=== PATIENT | male | born 1960 | race Caucasian/White ===

== ENCOUNTER 2025-04-30 12:10 | Emergency (ER) | payer OTHER, SELFPAY ==
[2025-04-30 12:20] VITALS: BP 175/106
[2025-04-30 12:50] LABS: Hematocrit 43.3 % (39.0-52.0); Hemoglobin 14.9 g/dL (13.0-18.0); Mean Corp Hgb Conc. 34.4 g/dL (33.0-37.0); Mean Corpuscular Volume 84.9 fL (80.0-94.0); Nucleated Red Blood Cells % 0 % (-); Platelet Count 218 10^3/uL (130-400); Red Cell Dist. Width 12.9 % (11.5-14.5)
[2025-04-30 13:03] LABS: ALT (SGPT) 43 U/L (0-50); AST (SGOT) 39 U/L (17-59); Albumin 5.5 g/dl (3.5-5.0); Alkaline Phosphatase 50 U/L (38-126); Blood Urea Nitrogen 15 mg/dl (9-20); Calcium 9.9 mg/dl (8.4-10.2); Carbon Dioxide 26 mmol/L (22-30); Chloride 104 mmol/L (98-107); Glucose 102 mg/dl (70-99); Potassium 4.8 mmol/L (3.5-5.1); Sodium 140 mmol/L (135-145); Total Protein 8.9 g/dl (6.3-8.2); eGFR > 60.00
[2025-04-30 13:15] LABS: Troponin I < 0.012 ng/ml
[2025-04-30 13:48] VITALS: BP 145/71
[2025-04-30 14:00] VITALS: BP 137/69
--- NOTE | 2025-04-30 14:19 | ED.GENMED ---
Addendum entered and electronically signed by Tee Peñaloza DO 04/30/25 17:57:
Additional history had patient chew #4 81 mg aspirin
Original Note:
History of Present Illness
General
Chief Complaint: Dizziness
Source: patient and spouse
Exam Limitations: none
Time Seen by Provider: 04/30/25 13:50
Nursing documentation reviewed up to this point in time: agreed with
History of Present Illness
History of Present Illness:
64-year-old male history of hyperlipidemia was seen at his desk around 1030 developed slight dizziness feeling blurry vision left greater than right did not get better when he stood up did not get better when he closes eyes, no vomiting, no chest
pain or shortness of breath did feel palpitation no slurred speech no arm or leg weakness lasted about 25 or 30 minutes he called his to pick him up said he looked okay but he was anxious drove him here where his symptoms have resolved
did give him aspirin
If applicable-neuro sx onset
Onset of symptoms known: Yes
Date of onset of symptoms: 04/30/25
Time of onset of symptoms: 10:30
Past History
Past History
ED Past Medical History: Hypercholesterolemia
ED Past Surgical History: None
Social History
Tobacco: Non-smoker
Alcohol: Occasional
Drug: None
Personal:
Living: with family
Employment: Employed
Phy Exam
Physical Exam
Physical Exam:
Physical Exam
General: no apparent distress, not acutely ill
Neck: No jaundice
Heart: s1/s2 regular rate and rhythm, no murmur. equal radial pulses.
Lungs: no acute respiratory distress. clear bilaterally
Abdomen nontender
Neuro: alert and oriented. no focal neurological deficits normal finger-nose bilateral
Skin: no rash
Psychiatric: well kept. interactive and cooperative
Extremities: no edema.
Course
Orders/Labs/Results
Orders:
Orders
04/30/25 12:24
Electrocardiogram (*1) Urgent
Reason for Study: Hypertension, Benign
EKG- Treatment ONCE
04/30/25 12:34
CMP [Comprehensive Metabolic Panel] Urgent
Complete Blood Count/With Diff Urgent
Troponin I Urgent
04/30/25 14:06
CT Head & Neck Angio W/wo IV Urgent
Comment:
Reason For Exam: dizzy, visual changes
Abnormal Lab Results
04/30/25
12:34
MPV 10.8 H fL
(7.4-10.4)
Absolute Monos (auto) 0.7 H 10^3/uL
(0.1-0.6)
Lymphocytes % 18.8 L %
(20.5-51.1)
Glucose 102 H mg/dl
(70-99)
Total Protein 8.9 H g/dl
(6.3-8.2)
Albumin 5.5 H g/dl
(3.5-5.0)
04/30/25 12:34
04/30/25 12:34
Vital Signs
Initial and Last Documented VS:
Initial Vital Signs
Temp Pulse Resp BP Pulse Ox
98.2 F 65 16 175/106 100
04/30/25 12:20 04/30/25 12:20 04/30/25 12:20 04/30/25 12:20 04/30/25 12:20
Last Documented Vital Signs
Temp Pulse Resp BP Pulse Ox
98.2 F 67 16 148/74 98
04/30/25 12:20 04/30/25 17:45 04/30/25 17:45 04/30/25 16:41 04/30/25 17:45
MDM/Problems Addressed
Differential Diagnosis Includes:
Vertigo arrhythmia TIA electrolyte abnormality dehydration
MDM/Problems Addressed:
Dizziness palpitations
Chronic conditions affecting care:
Hyperlipidemia
Acute Exacerbation and/or Progression of Chronic Illness:
Hyperlipidemia
*Radiology
Radiology exam reviewed: radiology read reviewed
*Pulse Oximetry
SaO2: 100
Oxygen Mode of Delivery: Room air
Patient hypoxic: no
*EKG
Interpreted by ED Provider?: Yes
Interpretation: normal
Comparison EKG: no comparison EKG present
Heart Rate: 78
Rate: normal
Rhythm: sinus
Ischemia: non-specific ST changes
*Plexiglas Former Interpretation
Rate: normal
Interpretation: normal
Heart Rate: 78
Rhythm: sinus
*Critical Care Note
Total Time (30-74mins, 75-104mins- exclusive of procedures): Not Applicable
Update Note
Update Note:
5:[address] report noted patient appears comfortable clear speech did have some visual changes earlier, will continue his aspirin has no large vessel occlusion on the CT no carotid disease believe he can safely be discharged on aspirin PCP follow-up
ER if worsening symptoms does have an appointment with [facility] in the coming weeks encouraged him to keep that
ED Attending Note
-
Portions of this chart may have been created with voice recognition software.� Occasional wrong word or��sound alike� substitutions may have occurred due to the inherent limitations of voice recognition software.
Discharge Plan
Departure
Patient Disposition: Home (Routine Discharge)
Date of Disposition: 04/30/25
Time of Disposition: 17:55
Patient with high blood pressure during this ER visit?: No
Condition: Good
Discharge Problem:
Brain TIA
Instructions: Dizziness, Transient Ischemic Attack ED
Referrals:
Brayan Ledbetter MD [Family Provider, Family Practice] - Tomorrow
Activity Restrictions/Additional Instructions:
Continue aspirin 81 mg a day
Follow-up with your family doctor keep your appointment with cardiology
Return to the ER if worsening symptoms or any concerns
Interventions
Interventions:
*Risk Screen - Suicide Last Done: 04/30/25 12:20
*General Assessment Last Done: 04/30/25 16:00
*Neglect/Abuse Screening Last Done: 04/30/25 12:20
*ED- Fall Risk Assessment Last Done: 04/30/25 16:00
*ED COVID-19 Vaccine History Last Done: 04/30/25 16:00
ED- Neurological Assessment Last Done: 04/30/25 13:45
ED- Cardiac Assessment Last Done: 04/30/25 13:45
Discharge Date and Time
Print Language: FRENCH
[2025-04-30 15:00] VITALS: BP 138/70
[2025-04-30 15:30] VITALS: BMI 23.6
[2025-04-30 16:41] VITALS: BP 148/74
== END 2025-04-30 18:08 | disposition home or self-care (01) ==
LOC: EMR 12:10
PROVIDERS: Emergency Medicine; EMERGENCY PHYSICIAN Emergency Medicine; FAMILY PHYSICIAN Family Medicine
DX: G45.9 Transient cerebral ischemic attack, unspecified (principal); E78.00 Pure hypercholesterolemia, unspecified
CPT/HCPCS: 99284; 70496; 70498; 80053; 84484; 85025; 93005; Q9967

== ENCOUNTER → 2025-06-23 07:31 | Outpatient (REF) | payer OTHER, SELFPAY | LOC: RCS 07:31 | PROVIDERS: ATTENDING PHYSICIAN Internal Medicine; FAMILY PHYSICIAN Family Medicine | DX: G45.9 Transient cerebral ischemic attack, unspecified (principal); R42 Dizziness and giddiness; R00.2 Palpitations | CPT/HCPCS: 93017 ==

== ENCOUNTER → 2025-07-01 08:12 | Outpatient (REF) | payer OTHER, SELFPAY ==
--- NOTE | 2025-07-01 09:24 | PTCARENOTE ---
Pt here for Echo Bubble Study. Right antecubital 22 G PC inserted for procedure, site clear, no redness, no edema. Bubble Study completed per protocol with aseptic technique. Pt tolerated procedure well, denies dizziness, denies lightheadedness.
Heplock D/C ed, pressure held for few minutes as pt on ASA. No bleeding, 2x2 applied and taped. No change in pt status.
== END ==
LOC: RCS 08:12
PROVIDERS: ATTENDING PHYSICIAN Internal Medicine; FAMILY PHYSICIAN Family Medicine
DX: G45.9 Transient cerebral ischemic attack, unspecified (principal); R42 Dizziness and giddiness
CPT/HCPCS: 93306

== ENCOUNTER → 2025-07-04 11:07 | Outpatient (REF) | payer OTHER, SELFPAY | LOC: HWRCS 11:07 | PROVIDERS: ATTENDING PHYSICIAN Internal Medicine; FAMILY PHYSICIAN Family Medicine | DX: G45.9 Transient cerebral ischemic attack, unspecified (principal); R94.31 Abnormal electrocardiogram [ECG] [EKG] | CPT/HCPCS: 78452; 93017; A9500 ==

== ENCOUNTER 2025-07-11 08:11 | Day surgery (SDC) | payer OTHER, SELFPAY ==
[2025-07-09 09:42] VITALS: BMI 24.7
[2025-07-09 10:03] LABS: Hematocrit 40.5 % (39.0-52.0); Hemoglobin 13.7 g/dL (13.0-18.0); Mean Corp Hgb Conc. 33.8 g/dL (33.0-37.0); Mean Corpuscular Volume 84.7 fL (80.0-94.0); Nucleated Red Blood Cells % 0 % (-); Platelet Count 224 10^3/uL (130-400); Red Cell Dist. Width 13.2 % (11.5-14.5)
[2025-07-09 11:09] LABS: ALT (SGPT) 43 U/L (0-50); AST (SGOT) 32 U/L (17-59); Albumin 4.9 g/dl (3.5-5.0); Alkaline Phosphatase 55 U/L (38-126); Blood Urea Nitrogen 14 mg/dl (9-20); Calcium 9.7 mg/dl (8.4-10.2); Carbon Dioxide 30 mmol/L (22-30); Chloride 105 mmol/L (98-107); Estimated Creatinine Clearance 89 ml/min; Glucose 87 mg/dl (70-99); Potassium 4.8 mmol/L (3.5-5.1); Sodium 144 mmol/L (135-145); Total Protein 7.6 g/dl (6.3-8.2); eGFR > 60.00
[2025-07-11] VITALS (21 sets, daily range): BP systolic 91–181; BP diastolic 54–97; BMI 24.7
[2025-07-11 10:11] LABS: ACT-LR - POC 265 Seconds (116-155)
--- NOTE | 2025-07-11 13:29 | PTCARENOTE ---
Patient states feeling dizzy upon 30 min check. HR IN 50'S. bp 91/56. CALENDER SUPERVISOR at bedside. Atropine 0.5mg given. HR as low as 42. 500ml bolus given. Patient placed in Trendelenburg position.
--- NOTE | 2025-07-11 13:30 | PTCARENOTE ---
Patient laying flat. BP 104/60 HR 60. pATIENT FEELING MUCH BETTER.
--- NOTE | 2025-07-11 13:33 | W.PN.UPDATE ---
Update Note
Progress Note Update
CTSP re: bradycardia/hypotension. Pt was feeling fine post cath, then developed sudden onset diaphoresis, lh, pallor, nausea. HR 40s, SBP 80. Placed in trendelenburg and given 1/2 amp atropine, IV fluids wide open. Improved HR 60s and BP up to
100/MAP >60. Symptoms resolving. Will continue to monitor. Right rad R Band still on at this time, some oozing prior to this event but not necessarily related. Good distal pulses to all extremities.
Dr. Cameron aware of above.
[2025-07-11] MEDS: ATROPINE 0.1 MG/ML SYRINGE 0.5 MG IV (13:37)
--- NOTE | 2025-07-11 13:37 | ITS.CL.PN ---
Mediator - Procedure Note
Procedure
Procedure Note:
CARDIAC CATHETERIZATION REPORT
Date of Procedure: 07/11/2025
Referring: Dr. Perico Umana MD, PhD
Indication: high risk stress test
PROCEDURE(S)
1. left heart catheterization
2. coronary angiography
3. iFR LAD
4. iFR Ramus
ACCESS: 6F right radial artery (closure: radial band)
CATHETERS
1. 6F JR4
2. 6F JL4
3. 6F JL3.5 guide
MODERATE SEDATION: 45 minutes of moderate sedation was utilized. An independent medical office supervisor was present to assist with and help manage the patient's level of consciousness and physiologic status.
HEMODYNAMIC DATA
LV 130/7 (EDP 18) mmHg
AO 119/63 (mean 83) mmHg
CORONARY ANGIOGRAPHY
Dominance: Right
LM: Large with 30% distal tapering.
LAD: Large vessel giving rise to a moderate caliber diagonal branch and wrapping around the apex. There is a focal 50% stenosis in the proximal LAD. This was further evaluated with iFR.
Ramus: Large vessel with poorly defined mild to moderate ostial disease. This was further interrogated with iFR.
LCx: Large vessel giving rise to a small OM1 and large OM2. There is mild ostial disease. There is a long segment of moderate disease up to 50% in the proximal aspect of the OM2.
RCA: Moderate caliber vessel giving rise to a small RPDA and several small RPL branches. There is severe up to 90% stenosis in the mid RCA with OMEGA-3 flow distally.
iFR of LAD
The left main was engaged with a JL3.5 guide catheter and heparin was given to achieve ACT>250. An Omni wire was flushed and zeroed outside the body and then advanced to the mid left main. The wire introducer was removed and the catheter flushed
with saline, after which pressure of the wire and guide were normalized. The wire was advanced to the mid-LAD and iFR recorded at 0.83. iFR pullback was performed noting contribution from both a very tortuous segment in the mid LAD that did not seem
angiographically significant and also mild contribution from the area of concern in the proximal LAD (0.94). On return to the left main, iFR appropriately normalized to ~1.0, confirming lack of wire drift. Overall, this suggests that the disease in
question in the proximal LAD is non-significant. The unexpected contribution from the mid-LAD tortuous segment could represent pseudostenosis from wire straightening rather than physiologically significnat stenosis given it's mild angiographic
appearance in multiple projections.
iFR of Ramus
The Omni wire was redirected to the Ramus and normalized in the left main. The wire was advanced to the mid portion of the Ramus and iFR recorded at 1.0. On return to the left main, iFR appropriately normalized to ~1.0, confirming lack of wire drift.
RADIATION: dose 849 mGy; DAP 22.5 Gy*cm2; fluoroscopy time 18.2 min
CONCLUSION / RECOMMENDATION
1. Multi-vessel coronary artery disease as described.
2. Mildly elevated LV filling pressure and no aortic stenosis.
3. Given lack of symptoms and lack of definitively significant disease in the LAD, I favor an approach of initial medical management. Should the patient develop medication refractor ischemic symptoms, PCI to RCA would be a reasonable next step. If
patient has global progression of disease in the future, and particularly in the LAD, multi-vessel surgical revascularization would be the best approach.
4. Cont. ASA for life. Will increase lipid lowering therapy to atorva 40 + ezetimibe. If residual LDL > 55 consideration [id number]. Recommend screening for elevated Lp(a) in the outpatient setting. Recommend aggressive control of all cardiovascular
risk factors.
Copy to: Dr. Perico Umana MD, PhD (production grader); Dr. Brayan Ledbetter MD (PCP)
Signed: Kg Cameron MD, PhD
[2025-07-11] MEDS: NSS 500 IV (13:38)
== END 2025-07-11 15:03 | disposition home or self-care (01) ==
LOC: CATH 08:11
PROVIDERS: ATTENDING PHYSICIAN Student in an Organized Health Care Education/Training Program; FAMILY PHYSICIAN Family Medicine; OTHER PHYSICIAN Internal Medicine
DX: I25.10 Atherosclerotic heart disease of native coronary artery without angina pectoris (principal); E78.5 Hyperlipidemia, unspecified; K51.90 Ulcerative colitis, unspecified, without complications; Z79.82 Long term (current) use of aspirin; Z79.899 Other long term (current) drug therapy; Z82.49 Family history of ischemic heart disease and other diseases of the circulatory system
CPT/HCPCS: 93799 ×2; 99152; 99153; 36415; 80053; 85025; 85347; 93005; 93458; C1769; C1894; Q9967